=== PATIENT | female | born 1965 | race Caucasian/White ===

== ENCOUNTER 2017-08-23 03:10 | Emergency (ER) | payer OTHER, SELFPAY ==
[2017-08-23 03:30] VITALS: BP 146/84; PULSE 72; RESP 16; TEMP 36.7; O2SAT 100
--- NOTE | 2017-08-23 03:37 | DI.RAD.S_ITS ---
PROCEDURE: XR CHEST 2V INDICATIONS: 51 year-old female with palpitations. TECHNIQUE: 2 views of the chest were acquired. COMPARISON: None. FINDINGS: Surgical changes and devices: None. Lungs and pleura: No pleural effusions or pneumothorax. Lungs are clear. Lung volumes are prominent. Mediastinum: Mediastinal contours are normal. Heart size is normal. Bones and chest wall: No suspicious bony abnormalities. Soft tissues appear unremarkable. IMPRESSION: No acute cardiopulmonary disease. Prominent lung volumes raise the question of chronic obstructive pulmonary disease. Dictated by: Shade Rowe M.D. on 08/23/2017 at 7:50 Approved by: Shade Rowe M.D. on 08/23/2017 at 7:50
--- NOTE | 2017-08-23 03:37 | DI.RAD.S_ITS ---
PROCEDURE: XR TIBIA FUBULA RT 2V INDICATIONS: 51 year-old female with anterior right leg pain after fall. TECHNIQUE: 2 views of the tibia and fibula were acquired. COMPARISON: None. FINDINGS: Bones: No fractures or dislocations. No suspicious bony lesions. Soft tissues: No suspicious soft tissue calcifications or masses. IMPRESSION: No acute bony injuries of the right lower leg. Dictated by: Shade Rowe M.D. on 08/23/2017 at 7:49 Approved by: Shade Rowe M.D. on 08/23/2017 at 7:50
--- NOTE | 2017-08-23 03:39 | PC.NURSE ---
pt reports she was on the phone with her friend norberto she was crying and upset. norberto was concerned for her. pt's phone . 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 states her meds are inher car but she was afraid of the dark.
[2017-08-23 04:31] LABS: Add Manual Diff / Slide Review NO; Basophils Percent Auto 0.6 % (0-2); Eosinophils Percent Auto 1.5 % (2-4); Hematocrit 40.3 % (36-46); Hemoglobin 13.9 g/dL (12.0-16.0); Lymphocytes Percent Auto 21.2 % (25-40); Mean Corpuscular HGB Conc 34.6 % (30-36); Mean Corpuscular Hemoglobin 31.8 PG (26-34); Mean Corpuscular Volume 92.1 fL (80-100); Monocytes Percent Auto 7.2 % (3-14); Neutrophils Absolute Auto 4100 /uL (3000-5900); Neutrophils Percent Auto 69.5 % (50-75); Platelet Count 297 X10^3/uL (150-400); Red Blood Cell Count 4.37 X10^6/uL (4.0-5.2); Red Cell Distribution Width 13.2 % (11.6-14.8); White Blood Cell Count 5.9 X10^3/uL (4.5-11.0)
[2017-08-23 04:39] LABS: Alanine Aminotransferase 30 IU/L (9-52); Albumin 3.9 g/dL (3.5-5.0); Albumin Globulin Ratio 1.3 (1.0-2.8); Alkaline Phosphatase 99 U/L (38-126); Aspartate Aminotransferase 32 IU/L (14-36); Bilirubin Total 0.3 mg/dL (0.2-1.3); Blood Urea Nitrogen 7 mg/dL (7-17); Calcium 8.8 mg/dL (8.4-10.2); Carbon Dioxide 25 mmol/L (22-32); Chloride 109 mmol/L (98-107); Estimated Glomerular Filt Rate > 60.0 mL/min (>60); Ethanol (ETOH) < 10 mg/dL; Globulin 2.9 g/dL (1.7-4.1); Glucose 106 mg/dL (70-100); HEMOLYSIS 31 (0-50); Sodium 145 mmol/L (137-145); Total Protein 6.8 g/dL (6.3-8.2)
--- NOTE | 2017-08-23 04:53 | ED.PSYCH ---
HPI - Psych <Xiang Ross DO - Last Filed: 08/25/17 07:17> General Chief Complaint: Psychiatric Symptoms Stated Complaint: Not sleeping, right leg injury Time Seen by Provider: 08/23/17 03:19 Source: patient and police Mode of arrival: ambulatory Limitations: no limitations History of Present Illness HPI Narrative: Patient presents to the emergency department today with a chief complaint of inability to sleep for some time. She states that her right anterior romero hurts ever since a fall 3 weeks ago and this is keeping her. Additionally she states that she thinks she may be having a thyroid storm because she has been having a hard time sleeping. She denies any headache any nausea, vomiting, fever or chills. She denies any existing mental health diagnosis other than PTSD. complaint: other Onset (ago): day(s) Duration: constant Context: significant life stressor Associated psychiatric symptoms: delusions Associated symptoms: denies other symptoms Treatments prior to arrival: none Related Data Home Medications Medication Instructions Recorded Confirmed levothyroxine [Synthroid] 75 mcg PO DAILY 08/23/17 08/23/17 progesterone micronized 200 mcg PO DAILY 08/23/17 08/23/17 Allergies Allergy/AdvReac Type Severity Reaction Status Date / Time aspirin Allergy Verified 08/23/17 03:30 codeine Allergy Verified 08/23/17 03:30 diazepam [From Valium] Allergy Verified 08/23/17 03:30 ibuprofen [From Advil] Allergy Verified 08/23/17 03:30 morphine Allergy Verified 08/23/17 03:30 naproxen [From Aleve] Allergy Verified 08/23/17 03:30 Penicillins Allergy Verified 08/23/17 03:30 Review of Systems <Xiang Ross DO - Last Filed: 08/25/17 07:17> Review of Systems All systems reviewed & are unremarkable except as noted in HPI and below Constitutional Denies chills, Denies fever(s), Denies lethargy and Denies weakness Eyes Denies change in vision, Denies eye discharge, Denies irritation and Denies loss of vision ENT Ears, Nose, Mouth, and Throat: Denies change in voice, Denies neck pain and Denies sore throat Cardiovascular Denies chest pain, Denies irregular heart rhythm, Denies lightheadedness, Denies palpitations, Denies dyspnea, Denies dyspnea on exertion and Denies orthopnea Respiratory Denies cough, Denies dyspnea, Denies dyspnea on exertion and Denies wheezing Gastrointestinal Gastrointestinal: Denies abdominal pain, Denies change in bowel habits, Denies diarrhea, Denies nausea and Denies vomiting Genitourinary Denies hematuria, Denies flank pain, Denies urinary incontinence and Denies urinary urgency Musculoskeletal Reports limited range of motion and Denies neck pain Integumentary/Breasts Denies pruritus, Denies erythema, Denies rash and Denies wounds Neurologic Denies confusion, Denies loss of vision and Denies weakness Psychiatric Denies anxiety, Denies confusion, Denies depression, Denies homicidal ideation and Denies suicidal ideation Endocrine Denies palpitations Hematologic/Lymphatic Denies easy bruising Allergic/Immunologic Denies wheezing Exam <Xiang Ross, DO - Last Filed: 08/25/17 07:17> Narrative Exam Narrative: Pleasant 51F in no significant distress Initial Vital Signs Initial Vital Signs: Vital Signs Temperature 98.0 F 08/23/17 03:30 Pulse Rate 72 08/23/17 03:30 Respiratory Rate 16 08/23/17 03:30 Blood Pressure 146/84 H 08/23/17 03:30 Pulse Oximetry 100 08/23/17 03:30 Const General: cooperative, well developed and anxious Nutritional Appearance: well nourished Orientation: alert, awake, oriented x3 and not confused [facility] Head: normocephalic and atraumatic Ears: external ears normal and TM's normal bilaterally Nose: external nose normal and No nasal discharge Face and sinus: sinuses nontender, face symmetric, no sinus tenderness and No dry mucous membranes Mouth: oral mucosae normal and moist mucous membranes Teeth and gingiva: dentition normal Throat: tonsils normal and uvula midline Neck Neck: normal visual inspection, trachea midline, No lymphadenopathy, No midline deformity and No JVD Lymphatic: No lymphedema Chest Chest: normal inspection of the chest Cardio Rate: regular rate Rhythm: regular rhythm Heart Sounds: no click, no gallops, no murmurs and no rubs Pulses: normal peripheral pulses Back/Spine/Pelvis Back: No CVA tenderness Cervical Spine: cervical ROM normal and No pain with cervical ROM Thoracic/Lumbar Spine: thoracic and lumbar spine normal to inspection Skin General: no rashes or lesions noted, No jaundice and No petechiae Neuro General: alert, oriented x3, gait normal and no focal motor deficits Speech: speech normal Extrem Right lower extremity: lower leg (mild tenderness to palpation from fall 3 weeks again) Psych Appearance: grossly normal Speech and Movement: pressured speech Mood: anxious mood and manic mood Affect: normal affect Thought Process: flight of ideas Thought Content: compulsions and delusions Judgment: judgment good <Sammy Hubbard, DO - Last Filed: 08/23/17 12:52> Initial Vital Signs Initial Vital Signs: Vital Signs Temperature 98.0 F 08/23/17 03:30 Pulse Rate 72 08/23/17 03:30 Respiratory Rate 16 08/23/17 03:30 Blood Pressure 146/84 H 08/23/17 03:30 Pulse Oximetry 100 08/23/17 03:30 Course <Xiang Ross, DO - Last Filed: 08/25/17 07:17> Orders Ordered: ED Orders 08/23/17 04:20 Complete Blood Count AUTO DIFF Stat Comprehensive Metabolic Panel Stat Ethanol (ETOH) Stat Free T4 Free Thyroxine Stat Thyroid Stimulating Hormone Stat 08/23/17 06:55 Urinalysis and Microscopic Stat Urine Culture Stat Reevaluation(s) Reevaluation #1: patient resting comfortably. Eating a filet of salmon which she brought from home. Time: 05:09 Reevaluation #2: Over the course of the visit becomes increasingly clear that the patient is impressively manic and is not taking medications that she surely has been prescribed. She demonstrates no homicidal or suicidal ideation but is incredibly tangential in thought with pressured speech and flight of ideas. She is very paranoid that she has been improperly treated and labeled as a mental health patient when in fact her symptoms are due to some as of yet unknown diagnosis. She states she does not have bipolar disorder and I have no with 0 ready to suggest such. She states that she has not taken medications because she does not need them. It is now been brought to my attention that she arrived at the emergency department because of making her very paranoid and nonsensical comments to a friend or roommate was then notified police to check on her. Police brought her to our registration and she checked in. She denies wanting or needing help for any mental health and states she just wanted to have her romero pain evaluated. S spoken with her father, at [employer], on the phone whom states she does in fact carries a diagnosis of bipolar and has had multiple hospitalizations including recently at [facility] for depression. He states that she has been escalating over the past few days on the manic side of things and she is no longer able to care for herself at home due to the severity of her illness. He is more than happy to engage in phone contact with the DCR or fill out an affit eloise. [facility] has been contacted and DCR will be dispatched. My intent is that this patient be admitted for stabilization of her condition. Sign out to Dr. Hubbard. Vital Signs - 8 hr 08/23/17 07:04 08/23/17 12:49 Temperature 98.3 F Pulse Rate 86 79 Respiratory Rate 16 19 Blood Pressure [Left Arm] 161/94 H 153/92 H Pulse Oximetry 99 100 <Sammy Hubbard, DO - Last Filed: 08/23/17 12:52> Orders Ordered: ED Orders 08/23/17 04:20 Complete Blood Count AUTO DIFF Stat Comprehensive Metabolic Panel Stat Ethanol (ETOH) Stat Free T4 Free Thyroxine Stat Thyroid Stimulating Hormone Stat 08/23/17 06:55 Urinalysis and Microscopic Stat Urine Culture Stat Reevaluation(s) Reevaluation #3: I assumed care of this patient from Dr. Ross at the change of shift. I confirmed the elements of the history and physical exam as documented above. I spoke with the DCR who SIERRA'd patient and found an accepting bed and physician at [facility]. Dr. Willoughby will see the patient. Ambulance is coming to transport patient BLS Time: 12:50 Vital Signs - 8 hr 08/23/17 07:04 08/23/17 12:49 Temperature 98.3 F Pulse Rate 86 79 Respiratory Rate 16 19 Blood Pressure [Left Arm] 161/94 H 153/92 H Pulse Oximetry 99 100 MDM - Psych <Xiang Ross, DO - Last Filed: 08/25/17 07:17> Differential Diagnosis Likely acute psychosis, chronic schizophrenia, bipolar disorder, drug-induced psychotic disorder and acute anxiety Medical Records Attestation: I reviewed the patient's medical records. Lab Data Attestation: I reviewed the patient's lab results. Result diagrams: 08/23/17 04:20 08/23/17 04:20 Lab Results 06/06/18 06/06/18 06/06/18 Range/Units 04:20 04:20 04:20 WBC 5.9 (4.5-11.0) X10^3/uL RBC 4.37 (4.0-5.2) X10^6/uL Hgb 13.9 (12.0-16.0) g/dL Hct 40.3 (36-46) % MCV 92.1 (80-100) fL MCH 31.8 (26-34) PG MCHC 34.6 (30-36) % RDW 13.2 (11.6-14.8) % Plt Count 297 (150-400) X10^3/uL Neut % (Auto) 69.5 (50-75) % Lymph % (Auto) 21.2 L (25-40) % [place] % (Auto) 7.2 (3-14) % Eos % (Auto) 1.5 L (2-4) % Baso % (Auto) 0.6 (0-2) % Neut # (Auto) 4100 (6509-8026) /uL Sodium 145 (137-145) mmol/L Potassium 4.0 (3.4-5.1) mmol/L Chloride 109 H (98-107) mmol/L Carbon Dioxide 25 (22-32) mmol/L BUN 7 (7-17) mg/dL Creatinine 0.50 L (0.52-1.04) mg/dL Estimated GFR > 60.0 (>60) mL/min BUN/Creatinine Ratio 14.0 (6-22) Glucose 106 H (70-100) mg/dL Calcium 8.8 (8.4-10.2) mg/dL Total Bilirubin 0.3 (0.2-1.3) mg/dL AST 32 (14-36) IU/L ALT 30 (9-52) IU/L Alkaline Phosphatase 99 (38-126) U/L Total Protein 6.8 (6.3-8.2) g/dL Albumin 3.9 (3.5-5.0) g/dL Globulin 2.9 (1.7-4.1) g/dL Albumin/Globulin Ratio 1.3 (1.0-2.8) TSH 11.40 H (0.47-4.68) uIU/mL Free T4 0.93 (0.78-2.19) ng/dL Urine Color Urine Appearance Urine pH (4.5-8.0) Ur Specific [place] (1.000-1.035) Urine Protein (Negative) Urine Glucose (UA) (Normal) g/dL Urine Ketones (NEGATIVE) Urine Occult Blood (Negative) Urine Nitrate (Negative) Urine Bilirubin (NEGATIVE) Urine Urobilinogen (0.2) E.U./dL Ur Leukocyte Esterase (NEGATIVE) Urine RBC (0-5/HPF) Urine WBC (0-5/HPF) Ur Squamous Epith Cells Urine Bacteria (None) Ur Culture Indicated? Micro UA Comment Ethyl Alcohol < 10 mg/dL 08/23/17 Range/Units 06:55 WBC (4.5-11.0) X10^3/uL RBC (4.0-5.2) X10^6/uL Hgb (12.0-16.0) g/dL Hct (36-46) % MCV (80-100) fL MCH (26-34) PG MCHC (30-36) % RDW (11.6-14.8) % Plt Count (150-400) X10^3/uL Neut % (Auto) (50-75) % Lymph % (Auto) (25-40) % [place] % (Auto) (3-14) % Eos % (Auto) (2-4) % Baso % (Auto) (0-2) % Neut # (Auto) (4382-4879) /uL Sodium (137-145) mmol/L Potassium (3.4-5.1) mmol/L Chloride (98-107) mmol/L Carbon Dioxide (22-32) mmol/L BUN (7-17) mg/dL Creatinine (0.52-1.04) mg/dL Estimated GFR (>60) mL/min BUN/Creatinine Ratio (6-22) Glucose (70-100) mg/dL Calcium (8.4-10.2) mg/dL Total Bilirubin (0.2-1.3) mg/dL AST (14-36) IU/L ALT (9-52) IU/L Alkaline Phosphatase (38-126) U/L Total Protein (6.3-8.2) g/dL Albumin (3.5-5.0) g/dL Globulin (1.7-4.1) g/dL Albumin/Globulin Ratio (1.0-2.8) TSH (0.47-4.68) uIU/mL Free T4 (0.78-2.19) ng/dL Urine Color Yellow Urine Appearance Clear Urine pH 7.5 (4.5-8.0) Ur Specific [place] 1.020 (1.000-1.035) Urine Protein Negative (Negative) Urine Glucose (UA) Negative (Normal) g/dL Urine Ketones Negative (NEGATIVE) Urine Occult Blood Negative (Negative) Urine Nitrate Negative (Negative) Urine Bilirubin Negative (NEGATIVE) Urine Urobilinogen 0.2 (0.2) E.U./dL Ur Leukocyte Esterase 1+ H (NEGATIVE) Urine RBC None seen (0-5/HPF) Urine WBC 1-5/hpf (0-5/HPF) Ur Squamous Epith Cells 0-1 /hpf Urine Bacteria Few (2-10) H (None) Ur Culture Indicated? Specimen cultured Micro UA Comment Not Reportable Ethyl Alcohol mg/dL <Sammy Hubbard, DO - Last Filed: 08/23/17 12:52> Lab Data Lab Results 08/23/17 08/23/17 08/23/17 Range/Units 04:20 04:20 04:20 WBC 5.9 (4.5-11.0) X10^3/uL RBC 4.37 (4.0-5.2) X10^6/uL Hgb 13.9 (12.0-16.0) g/dL Hct 40.3 (36-46) % MCV 92.1 (80-100) fL MCH 31.8 (26-34) PG MCHC 34.6 (30-36) % RDW 13.2 (11.6-14.8) % Plt Count 297 (150-400) X10^3/uL Neut % (Auto) 69.5 (50-75) % Lymph % (Auto) 21.2 L (25-40) % [place] % (Auto) 7.2 (3-14) % Eos % (Auto) 1.5 L (2-4) % Baso % (Auto) 0.6 (0-2) % Neut # (Auto) 4100 (6350-8570) /uL Sodium 145 (137-145) mmol/L Potassium 4.0 (3.4-5.1) mmol/L Chloride 109 H (98-107) mmol/L Carbon Dioxide 25 (22-32) mmol/L BUN 7 (7-17) mg/dL Creatinine 0.50 L (0.52-1.04) mg/dL Estimated GFR > 60.0 (>60) mL/min BUN/Creatinine Ratio 14.0 (6-22) Glucose 106 H (70-100) mg/dL Calcium 8.8 (8.4-10.2) mg/dL Total Bilirubin 0.3 (0.2-1.3) mg/dL AST 32 (14-36) IU/L ALT 30 (9-52) IU/L Alkaline Phosphatase 99 (38-126) U/L Total Protein 6.8 (6.3-8.2) g/dL Albumin 3.9 (3.5-5.0) g/dL Globulin 2.9 (1.7-4.1) g/dL Albumin/Globulin Ratio 1.3 (1.0-2.8) TSH 11.40 H (0.47-4.68) uIU/mL Free T4 0.93 (0.78-2.19) ng/dL Urine Color Urine Appearance Urine pH (4.5-8.0) Ur Specific [place] (1.000-1.035) Urine Protein (Negative) Urine Glucose (UA) (Normal) g/dL Urine Ketones (NEGATIVE) Urine Occult Blood (Negative) Urine Nitrate (Negative) Urine Bilirubin (NEGATIVE) Urine Urobilinogen (0.2) E.U./dL Ur Leukocyte Esterase (NEGATIVE) Urine RBC (0-5/HPF) Urine WBC (0-5/HPF) Ur Squamous Epith Cells Urine Bacteria (None) Ur Culture Indicated? Micro UA Comment Ethyl Alcohol < 10 mg/dL 08/23/17 Range/Units 06:55 WBC (4.5-11.0) X10^3/uL RBC (4.0-5.2) X10^6/uL Hgb (12.0-16.0) g/dL Hct (36-46) % MCV (80-100) fL MCH (26-34) PG MCHC (30-36) % RDW (11.6-14.8) % Plt Count (150-400) X10^3/uL Neut % (Auto) (50-75) % Lymph % (Auto) (25-40) % [place] % (Auto) (3-14) % Eos % (Auto) (2-4) % Baso % (Auto) (0-2) % Neut # (Auto) (4386-7957) /uL Sodium (137-145) mmol/L Potassium (3.4-5.1) mmol/L Chloride (98-107) mmol/L Carbon Dioxide (22-32) mmol/L BUN (7-17) mg/dL Creatinine (0.52-1.04) mg/dL Estimated GFR (>60) mL/min BUN/Creatinine Ratio (6-22) Glucose (70-100) mg/dL Calcium (8.4-10.2) mg/dL Total Bilirubin (0.2-1.3) mg/dL AST (14-36) IU/L ALT (9-52) IU/L Alkaline Phosphatase (38-126) U/L Total Protein (6.3-8.2) g/dL Albumin (3.5-5.0) g/dL Globulin (1.7-4.1) g/dL Albumin/Globulin Ratio (1.0-2.8) TSH (0.47-4.68) uIU/mL Free T4 (0.78-2.19) ng/dL Urine Color Yellow Urine Appearance Clear Urine pH 7.5 (4.5-8.0) Ur Specific [place] 1.020 (1.000-1.035) Urine Protein Negative (Negative) Urine Glucose (UA) Negative (Normal) g/dL Urine Ketones Negative (NEGATIVE) Urine Occult Blood Negative (Negative) Urine Nitrate Negative (Negative) Urine Bilirubin Negative (NEGATIVE) Urine Urobilinogen 0.2 (0.2) E.U./dL Ur Leukocyte Esterase 1+ H (NEGATIVE) Urine RBC None seen (0-5/HPF) Urine WBC 1-5/hpf (0-5/HPF) Ur Squamous Epith Cells 0-1 /hpf Urine Bacteria Few (2-10) H (None) Ur Culture Indicated? Specimen cultured Micro UA Comment Not Reportable Ethyl Alcohol mg/dL Discharge Plan Departure Patient Disposition: Xfer Psychiatric Hosp Clinical Impression: Contusion of left leg, Insomnia, Acute psychosis Discharge Date/Time: 08/23/17 14:00 Interventions: ED Discharge Assessment Last Done: 08/23/17 13:05 Instructions: DI for Contusion Referrals: [facility] [Outside] Shaun Chandler MD [Non-Staff] -
--- NOTE | 2017-08-23 04:56 | ED_ITS ---
HPI - Psych <Xiang Ross DO - Last Filed: 08/25/17 07:17> General Chief Complaint: Psychiatric Symptoms Stated Complaint: Not sleeping, right leg injury Time Seen by Provider: 08/23/17 03:19 Source: patient and police Mode of arrival: ambulatory Limitations: no limitations History of Present Illness HPI Narrative: Patient presents to the emergency department today with a chief complaint of inability to sleep for some time. She states that her right anterior romero hurts ever since a fall 3 weeks ago and this is keeping her. Additionally she states that she thinks she may be having a thyroid storm because she has been having a hard time sleeping. She denies any headache any nausea, vomiting, fever or chills. She denies any existing mental health diagnosis other than PTSD. complaint: other Onset (ago): day(s) Duration: constant Context: significant life stressor Associated psychiatric symptoms: delusions Associated symptoms: denies other symptoms Treatments prior to arrival: none Related Data Home Medications Medication Instructions Recorded Confirmed levothyroxine [Synthroid] 75 mcg PO DAILY 08/23/17 08/23/17 progesterone micronized 200 mcg PO DAILY 08/23/17 08/23/17 Allergies Allergy/AdvReac Type Severity Reaction Status Date / Time aspirin Allergy Verified 08/23/17 03:30 codeine Allergy Verified 08/23/17 03:30 diazepam [From Valium] Allergy Verified 08/23/17 03:30 ibuprofen [From Advil] Allergy Verified 08/23/17 03:30 morphine Allergy Verified 08/23/17 03:30 naproxen [From Aleve] Allergy Verified 08/23/17 03:30 Penicillins Allergy Verified 08/23/17 03:30 Review of Systems <Xinag Ross DO - Last Filed: 08/25/17 07:17> Review of Systems All systems reviewed & are unremarkable except as noted in HPI and below Constitutional Denies chills, Denies fever(s), Denies lethargy and Denies weakness Eyes Denies change in vision, Denies eye discharge, Denies irritation and Denies loss of vision ENT Ears, Nose, Mouth, and Throat: Denies change in voice, Denies neck pain and Denies sore throat Cardiovascular Denies chest pain, Denies irregular heart rhythm, Denies lightheadedness, Denies palpitations, Denies dyspnea, Denies dyspnea on exertion and Denies orthopnea Respiratory Denies cough, Denies dyspnea, Denies dyspnea on exertion and Denies wheezing Gastrointestinal Gastrointestinal: Denies abdominal pain, Denies change in bowel habits, Denies diarrhea, Denies nausea and Denies vomiting Genitourinary Denies hematuria, Denies flank pain, Denies urinary incontinence and Denies urinary urgency Musculoskeletal Reports limited range of motion and Denies neck pain Integumentary/Breasts Denies pruritus, Denies erythema, Denies rash and Denies wounds Neurologic Denies confusion, Denies loss of vision and Denies weakness Psychiatric Denies anxiety, Denies confusion, Denies depression, Denies homicidal ideation and Denies suicidal ideation Endocrine Denies palpitations Hematologic/Lymphatic Denies easy bruising Allergic/Immunologic Denies wheezing Exam <Xiang Ross, DO - Last Filed: 08/25/17 07:17> Narrative Exam Narrative: Pleasant 51F in no significant distress Initial Vital Signs Initial Vital Signs: Vital Signs Temperature 98.0 F 08/23/17 03:30 Pulse Rate 72 08/23/17 03:30 Respiratory Rate 16 08/23/17 03:30 Blood Pressure 146/84 H 08/23/17 03:30 Pulse Oximetry 100 08/23/17 03:30 Const General: cooperative, well developed and anxious Nutritional Appearance: well nourished Orientation: alert, awake, oriented x3 and not confused [facility] Head: normocephalic and atraumatic Ears: external ears normal and TM's normal bilaterally Nose: external nose normal and No nasal discharge Face and sinus: sinuses nontender, face symmetric, no sinus tenderness and No dry mucous membranes Mouth: oral mucosae normal and moist mucous membranes Teeth and gingiva: dentition normal Throat: tonsils normal and uvula midline Neck Neck: normal visual inspection, trachea midline, No lymphadenopathy, No midline deformity and No JVD Lymphatic: No lymphedema Chest Chest: normal inspection of the chest Cardio Rate: regular rate Rhythm: regular rhythm Heart Sounds: no click, no gallops, no murmurs and no rubs Pulses: normal peripheral pulses Back/Spine/Pelvis Back: No CVA tenderness Cervical Spine: cervical ROM normal and No pain with cervical ROM Thoracic/Lumbar Spine: thoracic and lumbar spine normal to inspection Skin General: no rashes or lesions noted, No jaundice and No petechiae Neuro General: alert, oriented x3, gait normal and no focal motor deficits Speech: speech normal Extrem Right lower extremity: lower leg (mild tenderness to palpation from fall 3 weeks again) Psych Appearance: grossly normal Speech and Movement: pressured speech Mood: anxious mood and manic mood Affect: normal affect Thought Process: flight of ideas Thought Content: compulsions and delusions Judgment: judgment good <Sammy Hubbard, DO - Last Filed: 08/23/17 12:52> Initial Vital Signs Initial Vital Signs: Vital Signs Temperature 98.0 F 08/23/17 03:30 Pulse Rate 72 08/23/17 03:30 Respiratory Rate 16 08/23/17 03:30 Blood Pressure 146/84 H 08/23/17 03:30 Pulse Oximetry 100 08/23/17 03:30 Course <Xiang Ross, DO - Last Filed: 08/25/17 07:17> Orders Ordered: ED Orders 08/23/17 04:20 Complete Blood Count AUTO DIFF Stat Comprehensive Metabolic Panel Stat Ethanol (ETOH) Stat Free T4 Free Thyroxine Stat Thyroid Stimulating Hormone Stat 08/23/17 06:55 Urinalysis and Microscopic Stat Urine Culture Stat Reevaluation(s) Reevaluation #1: patient resting comfortably. Eating a filet of salmon which she brought from home. Time: 05:09 Reevaluation #2: Over the course of the visit becomes increasingly clear that the patient is impressively manic and is not taking medications that she surely has been prescribed. She demonstrates no homicidal or suicidal ideation but is incredibly tangential in thought with pressured speech and flight of ideas. She is very paranoid that she has been improperly treated and labeled as a mental health patient when in fact her symptoms are due to some as of yet unknown diagnosis. She states she does not have bipolar disorder and I have no with 0 ready to suggest such. She states that she has not taken medications because she does not need them. It is now been brought to my attention that she arrived at the emergency department because of making her very paranoid and nonsensical comments to a friend or roommate was then notified police to check on her. Police brought her to our registration and she checked in. She denies wanting or needing help for any mental health and states she just wanted to have her romero pain evaluated. S spoken with her father, at [employer], on the phone whom states she does in fact carries a diagnosis of bipolar and has had multiple hospitalizations including recently at [facility] for depression. He states that she has been escalating over the past few days on the manic side of things and she is no longer able to care for herself at home due to the severity of her illness. He is more than happy to engage in phone contact with the [facility] or fill out an affit eloise. [facility] has been contacted and [facility] will be dispatched. My intent is that this patient be admitted for stabilization of her condition. Sign out to Dr. Hubbard. Vital Signs - 8 hr 08/23/17 07:04 08/23/17 12:49 Temperature 98.3 F Pulse Rate 86 79 Respiratory Rate 16 19 Blood Pressure [Left Arm] 161/94 H 153/92 H Pulse Oximetry 99 100 <Sammy Hubbard, DO - Last Filed: 08/23/17 12:52> Orders Ordered: ED Orders 08/23/17 04:20 Complete Blood Count AUTO DIFF Stat Comprehensive Metabolic Panel Stat Ethanol (ETOH) Stat Free T4 Free Thyroxine Stat Thyroid Stimulating Hormone Stat 08/23/17 06:55 Urinalysis and Microscopic Stat Urine Culture Stat Reevaluation(s) Reevaluation #3: I assumed care of this patient from Dr. Ross at the change of shift. I confirmed the elements of the history and physical exam as documented above. I spoke with the DCR who SIERRA'd patient and found an accepting bed and physician at [facility]. Dr. Willoughby will see the patient. Ambulance is coming to transport patient BLS Time: 12:50 Vital Signs - 8 hr 08/23/17 07:04 08/23/17 12:49 Temperature 98.3 F Pulse Rate 86 79 Respiratory Rate 16 19 Blood Pressure [Left Arm] 161/94 H 153/92 H Pulse Oximetry 99 100 MDM - Psych <Xiang Ross, DO - Last Filed: 08/25/17 07:17> Differential Diagnosis Likely acute psychosis, chronic schizophrenia, bipolar disorder, drug-induced psychotic disorder and acute anxiety Medical Records Attestation: I reviewed the patient's medical records. Lab Data Attestation: I reviewed the patient's lab results. Result diagrams: 08/23/17 04:20 08/23/17 04:20 Lab Results 06/06/18 06/06/18 06/06/18 Range/Units 04:20 04:20 04:20 WBC 5.9 (4.5-11.0) X10^3/uL RBC 4.37 (4.0-5.2) X10^6/uL Hgb 13.9 (12.0-16.0) g/dL Hct 40.3 (36-46) % MCV 92.1 (80-100) fL MCH 31.8 (26-34) PG MCHC 34.6 (30-36) % RDW 13.2 (11.6-14.8) % Plt Count 297 (150-400) X10^3/uL Neut % (Auto) 69.5 (50-75) % Lymph % (Auto) 21.2 L (25-40) % [place] % (Auto) 7.2 (3-14) % Eos % (Auto) 1.5 L (2-4) % Baso % (Auto) 0.6 (0-2) % Neut # (Auto) 4100 (8873-1307) /uL Sodium 145 (137-145) mmol/L Potassium 4.0 (3.4-5.1) mmol/L Chloride 109 H (98-107) mmol/L Carbon Dioxide 25 (22-32) mmol/L BUN 7 (7-17) mg/dL Creatinine 0.50 L (0.52-1.04) mg/dL Estimated GFR > 60.0 (>60) mL/min BUN/Creatinine Ratio 14.0 (6-22) Glucose 106 H (70-100) mg/dL Calcium 8.8 (8.4-10.2) mg/dL Total Bilirubin 0.3 (0.2-1.3) mg/dL AST 32 (14-36) IU/L ALT 30 (9-52) IU/L Alkaline Phosphatase 99 (38-126) U/L Total Protein 6.8 (6.3-8.2) g/dL Albumin 3.9 (3.5-5.0) g/dL Globulin 2.9 (1.7-4.1) g/dL Albumin/Globulin Ratio 1.3 (1.0-2.8) TSH 11.40 H (0.47-4.68) uIU/mL Free T4 0.93 (0.78-2.19) ng/dL Urine Color Urine Appearance Urine pH (4.5-8.0) Ur Specific [place] (1.000-1.035) Urine Protein (Negative) Urine Glucose (UA) (Normal) g/dL Urine Ketones (NEGATIVE) Urine Occult Blood (Negative) Urine Nitrate (Negative) Urine Bilirubin (NEGATIVE) Urine Urobilinogen (0.2) E.U./dL Ur Leukocyte Esterase (NEGATIVE) Urine RBC (0-5/HPF) Urine WBC (0-5/HPF) Ur Squamous Epith Cells Urine Bacteria (None) Ur Culture Indicated? Micro UA Comment Ethyl Alcohol < 10 mg/dL 08/23/17 Range/Units 06:55 WBC (4.5-11.0) X10^3/uL RBC (4.0-5.2) X10^6/uL Hgb (12.0-16.0) g/dL Hct (36-46) % MCV (80-100) fL MCH (26-34) PG MCHC (30-36) % RDW (11.6-14.8) % Plt Count (150-400) X10^3/uL Neut % (Auto) (50-75) % Lymph % (Auto) (25-40) % [place] % (Auto) (3-14) % Eos % (Auto) (2-4) % Baso % (Auto) (0-2) % Neut # (Auto) (6558-8084) /uL Sodium (137-145) mmol/L Potassium (3.4-5.1) mmol/L Chloride (98-107) mmol/L Carbon Dioxide (22-32) mmol/L BUN (7-17) mg/dL Creatinine (0.52-1.04) mg/dL Estimated GFR (>60) mL/min BUN/Creatinine Ratio (6-22) Glucose (70-100) mg/dL Calcium (8.4-10.2) mg/dL Total Bilirubin (0.2-1.3) mg/dL AST (14-36) IU/L ALT (9-52) IU/L Alkaline Phosphatase (38-126) U/L Total Protein (6.3-8.2) g/dL Albumin (3.5-5.0) g/dL Globulin (1.7-4.1) g/dL Albumin/Globulin Ratio (1.0-2.8) TSH (0.47-4.68) uIU/mL Free T4 (0.78-2.19) ng/dL Urine Color Yellow Urine Appearance Clear Urine pH 7.5 (4.5-8.0) Ur Specific [place] 1.020 (1.000-1.035) Urine Protein Negative (Negative) Urine Glucose (UA) Negative (Normal) g/dL Urine Ketones Negative (NEGATIVE) Urine Occult Blood Negative (Negative) Urine Nitrate Negative (Negative) Urine Bilirubin Negative (NEGATIVE) Urine Urobilinogen 0.2 (0.2) E.U./dL Ur Leukocyte Esterase 1+ H (NEGATIVE) Urine RBC None seen (0-5/HPF) Urine WBC 1-5/hpf (0-5/HPF) Ur Squamous Epith Cells 0-1 /hpf Urine Bacteria Few (2-10) H (None) Ur Culture Indicated? Specimen cultured Micro UA Comment Not Reportable Ethyl Alcohol mg/dL <Sammy Hubbard, DO - Last Filed: 08/23/17 12:52> Lab Data Lab Results 08/23/17 08/23/17 08/23/17 Range/Units 04:20 04:20 04:20 WBC 5.9 (4.5-11.0) X10^3/uL RBC 4.37 (4.0-5.2) X10^6/uL Hgb 13.9 (12.0-16.0) g/dL Hct 40.3 (36-46) % MCV 92.1 (80-100) fL MCH 31.8 (26-34) PG MCHC 34.6 (30-36) % RDW 13.2 (11.6-14.8) % Plt Count 297 (150-400) X10^3/uL Neut % (Auto) 69.5 (50-75) % Lymph % (Auto) 21.2 L (25-40) % [place] % (Auto) 7.2 (3-14) % Eos % (Auto) 1.5 L (2-4) % Baso % (Auto) 0.6 (0-2) % Neut # (Auto) 4100 (1008-4096) /uL Sodium 145 (137-145) mmol/L Potassium 4.0 (3.4-5.1) mmol/L Chloride 109 H (98-107) mmol/L Carbon Dioxide 25 (22-32) mmol/L BUN 7 (7-17) mg/dL Creatinine 0.50 L (0.52-1.04) mg/dL Estimated GFR > 60.0 (>60) mL/min BUN/Creatinine Ratio 14.0 (6-22) Glucose 106 H (70-100) mg/dL Calcium 8.8 (8.4-10.2) mg/dL Total Bilirubin 0.3 (0.2-1.3) mg/dL AST 32 (14-36) IU/L ALT 30 (9-52) IU/L Alkaline Phosphatase 99 (38-126) U/L Total Protein 6.8 (6.3-8.2) g/dL Albumin 3.9 (3.5-5.0) g/dL Globulin 2.9 (1.7-4.1) g/dL Albumin/Globulin Ratio 1.3 (1.0-2.8) TSH 11.40 H (0.47-4.68) uIU/mL Free T4 0.93 (0.78-2.19) ng/dL Urine Color Urine Appearance Urine pH (4.5-8.0) Ur Specific [place] (1.000-1.035) Urine Protein (Negative) Urine Glucose (UA) (Normal) g/dL Urine Ketones (NEGATIVE) Urine Occult Blood (Negative) Urine Nitrate (Negative) Urine Bilirubin (NEGATIVE) Urine Urobilinogen (0.2) E.U./dL Ur Leukocyte Esterase (NEGATIVE) Urine RBC (0-5/HPF) Urine WBC (0-5/HPF) Ur Squamous Epith Cells Urine Bacteria (None) Ur Culture Indicated? Micro UA Comment Ethyl Alcohol < 10 mg/dL 08/23/17 Range/Units 06:55 WBC (4.5-11.0) X10^3/uL RBC (4.0-5.2) X10^6/uL Hgb (12.0-16.0) g/dL Hct (36-46) % MCV (80-100) fL MCH (26-34) PG MCHC (30-36) % RDW (11.6-14.8) % Plt Count (150-400) X10^3/uL Neut % (Auto) (50-75) % Lymph % (Auto) (25-40) % [place] % (Auto) (3-14) % Eos % (Auto) (2-4) % Baso % (Auto) (0-2) % Neut # (Auto) (0311-7811) /uL Sodium (137-145) mmol/L Potassium (3.4-5.1) mmol/L Chloride (98-107) mmol/L Carbon Dioxide (22-32) mmol/L BUN (7-17) mg/dL Creatinine (0.52-1.04) mg/dL Estimated GFR (>60) mL/min BUN/Creatinine Ratio (6-22) Glucose (70-100) mg/dL Calcium (8.4-10.2) mg/dL Total Bilirubin (0.2-1.3) mg/dL AST (14-36) IU/L ALT (9-52) IU/L Alkaline Phosphatase (38-126) U/L Total Protein (6.3-8.2) g/dL Albumin (3.5-5.0) g/dL Globulin (1.7-4.1) g/dL Albumin/Globulin Ratio (1.0-2.8) TSH (0.47-4.68) uIU/mL Free T4 (0.78-2.19) ng/dL Urine Color Yellow Urine Appearance Clear Urine pH 7.5 (4.5-8.0) Ur Specific [place] 1.020 (1.000-1.035) Urine Protein Negative (Negative) Urine Glucose (UA) Negative (Normal) g/dL Urine Ketones Negative (NEGATIVE) Urine Occult Blood Negative (Negative) Urine Nitrate Negative (Negative) Urine Bilirubin Negative (NEGATIVE) Urine Urobilinogen 0.2 (0.2) E.U./dL Ur Leukocyte Esterase 1+ H (NEGATIVE) Urine RBC None seen (0-5/HPF) Urine WBC 1-5/hpf (0-5/HPF) Ur Squamous Epith Cells 0-1 /hpf Urine Bacteria Few (2-10) H (None) Ur Culture Indicated? Specimen cultured Micro UA Comment Not Reportable Ethyl Alcohol mg/dL Discharge Plan Departure Patient Disposition: Xfer Psychiatric Hosp Clinical Impression: Contusion of left leg, Insomnia, Acute psychosis Discharge Date/Time: 08/23/17 14:00 Interventions: ED Discharge Assessment Last Done: 08/23/17 13:05 Instructions: DI for Contusion Referrals: [facility] [Outside] Shaun Chandler MD [Non-Staff] -
[2017-08-23 05:02] LABS: Free T4, Direct Thyroxine 0.93 ng/dL (0.78-2.19)
--- NOTE | 2017-08-23 05:43 | PC.NURSE ---
pt continually telling stories of previous hospitial visits. 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 pt appears to be getting angry, states i did not give you permission to draw my blood explained to patient dr ellis and myself explained what tests and procedures will need to be done and pt signed a consent. pt then states the docotor just came in and said im not having thyroid storms and he said im a liar.
--- NOTE | 2017-08-23 05:48 | PC.NURSE ---
pt continually eating on large peice of salmon she brought with her to the ed. pt also intermittently taking out notes and cards she is working on writing letters for her work and other people.
--- NOTE | 2017-08-23 06:06 | PC.NURSE ---
pt continually seeking to tell stories. pt seeking nurse to guess answers to multiple questions, also repetativly asking to repeat what she said.
--- NOTE | 2017-08-23 06:47 | PC.NURSE ---
pt discharged, father and mother met pt in waiting room. dr ellis spoke with pt and family. father requesting psych eval. pt unable to stop telling stories. pt not able to follow conversation. pt pleading for parents to stay. states mom can you text prosper and tell her im telling you the truth pt states tell prosper, cant i just tell you one sentence. pt repeatitivly trying to talk, not following directions. pt grabbing at her mother who is trying to exit the department.
[2017-08-23 07:04] VITALS: BP 161/94; PULSE 86; RESP 16; TEMP 36.8; O2SAT 99
[2017-08-23 07:09] LABS: RBC Urine None Seen (0-5/HPF)
[2017-08-23 07:11] LABS: Appearance Urine UA CLEAR; Bilirubin Urine UA NEGATIVE (NEGATIVE); Color Urine UA YELLOW; Glucose Urine UA NEGATIVE (Normal); Ketones Urine UA NEGATIVE (NEGATIVE); Leukocyte Esterase Urine UA 1+ (NEGATIVE); Nitrite Urine UA Negative (Negative); Occult Blood Urine UA NEGATIVE (Negative); Protein Urine UA NEGATIVE (Negative); Urobilinogen Urine UA 0.2 E.U./dL (0.2); pH Urine UA 7.5 (4.5-8.0)
--- NOTE | 2017-08-23 07:17 | PC.NURSE ---
Pt states she has not been caring for herself properly. States she has not been bathing as she should, only takes sponge baths 'as if you were camping'.
[2017-08-23 07:25] LABS: Bacteria Urine Few (2-10); Culture Indicated Urine Specimen Cultured; Squamous Epithelial Cell Urine 0-1 /HPF; WBC Urine 1-5/HPF (0-5/HPF)
--- NOTE | 2017-08-23 07:38 | PC.NURSE ---
recieved a call from alex barber, states, needs father statement for pt to be evaluated. there is not enough proof, pt is danger to herself.
--- NOTE | 2017-08-23 07:42 | PC.NURSE ---
called father tim myers, spoke and requested to write statement regarding concern for kallie.
--- NOTE | 2017-08-23 08:06 | PC.NURSE ---
recieved a call from [facility] , is familiar with pt, to fax her lab result to ch[facility].
--- NOTE | 2017-08-23 08:57 | PC.NURSE ---
recieved statement from father, contacted alex and she is aware.
--- NOTE | 2017-08-23 08:57 | PC.NURSE ---
alex from [facility] on the way to evaluate pt.
--- NOTE | 2017-08-23 10:21 | PC.NURSE ---
pt awake, repeatedly seeking attention to talk too. requested blanket, requested ice water, provided.
--- NOTE | 2017-08-23 10:52 | PC.NURSE ---
pt reports she is with pain clinic for hip pain, taking percocet and ativan, [facility], but ran out of ativan 5 weeks ago.
--- NOTE | 2017-08-23 11:30 | PC.NURSE ---
plan of care, pt transferred to [facility] per alex will be accepted after 1300.
[2017-08-23 12:49] VITALS: BP 153/92; PULSE 79; RESP 19; O2SAT 100
--- NOTE | 2017-08-23 12:52 | PC.NURSE ---
calling report at alex perez will be calling back. [phone]
--- NOTE | 2017-08-23 13:06 | PC.NURSE ---
pt transfer to [facility] , room 220 per alex. alex requested to offer pt anxiolytic to pt.
--- NOTE | 2017-08-23 13:15 | PC.NURSE ---
pt offered anxiolytic, pt refused states, she is allergic or cannot take, the only thing she can take is a low dose lithium, dr davis aware . no new order at this time. ativan,cogentin,lorazepam,valporic acid,resperidal,cymbalta,benadryl,xanax,haldol,geodon,zyprexa. (pt listed the above meds)
--- NOTE | 2017-08-23 13:56 | PC.NURSE ---
report given to [facility].
== END 2017-08-23 14:00 ==
PROVIDERS: Emergency Medicine; Emergency Provider Emergency Medicine
DX: G47.00 Insomnia, unspecified (principal); F23 Brief psychotic disorder; S80.12XA Contusion of left lower leg, initial encounter; W19.XXXA Unspecified fall, initial encounter
CPT/HCPCS: 36591; 71046; 73590; 80053; 80320; 81001; 84439; 84443; 85025; 87086; 93005; 99285

== ENCOUNTER 2017-09-01 18:23 | Emergency (ER) | payer OTHER, SELFPAY ==
[2017-09-01 18:35] VITALS: BP 180/94; PULSE 95; RESP 18; TEMP 36.9; O2SAT 100
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
[2017-09-01 21:16] VITALS: BP 163/100; PULSE 93; RESP 18; O2SAT 100
== END 2017-09-01 21:16 | disposition home or self-care (01) ==
PROVIDERS: Emergency Provider Emergency Medicine
DX: F30.9 Manic episode, unspecified (principal)
CPT/HCPCS: 99282

== ENCOUNTER 2017-09-02 00:45 | Emergency (ER) | payer OTHER, SELFPAY ==
[2017-09-02] VITALS (16 sets, daily range): BP systolic 136–188; BP diastolic 40–105; PULSE 81–140; RESP 14–100; TEMP 36.4–37.2; O2SAT 98–100
[2017-09-02] MEDS: KETAMINE 500 MG/10 ML INJ 350 MG IM (01:20)
[2017-09-02 01:47] LABS: Add Manual Diff / Slide Review NO; Basophils Percent Auto 0.5 % (0-2); Eosinophils Percent Auto 1.3 % (2-4); Hematocrit 41.1 % (36-46); Hemoglobin 14.4 g/dL (12.0-16.0); Lymphocytes Percent Auto 29.4 % (25-40); Mean Corpuscular Hemoglobin 31.7 PG (26-34); Mean Corpuscular Volume 90.7 fL (80-100); Monocytes Percent Auto 10.1 % (3-14); Neutrophils Absolute Auto 4500 /uL (3000-5900); Neutrophils Percent Auto 58.7 % (50-75); Platelet Count 385 X10^3/uL (150-400); Red Blood Cell Count 4.54 X10^6/uL (4.0-5.2); Red Cell Distribution Width 12.9 % (11.6-14.8); White Blood Cell Count 7.6 X10^3/uL (4.5-11.0)
[2017-09-02 01:57] LABS: Acetaminophen < 10 ug/mL (10-30)
[2017-09-02 01:58] LABS: Alanine Aminotransferase 31 IU/L (9-52); Albumin 4.2 g/dL (3.5-5.0); Albumin Globulin Ratio 1.4 (1.0-2.8); Alkaline Phosphatase 83 U/L (38-126); Aspartate Aminotransferase 28 IU/L (14-36); Bilirubin Total 0.5 mg/dL (0.2-1.3); Blood Urea Nitrogen 14 mg/dL (7-17); Calcium 9.2 mg/dL (8.4-10.2); Carbon Dioxide 23 mmol/L (22-32); Chloride 107 mmol/L (98-107); Creatine Kinase 194 U/L (30-135); Estimated Glomerular Filt Rate > 60.0 mL/min (>60); Ethanol (ETOH) < 10 mg/dL; Glucose 137 mg/dL (70-100); HEMOLYSIS < 15 (0-50); Potassium 3.1 mmol/L (3.4-5.1); Sodium 142 mmol/L (137-145); Total Protein 7.2 g/dL (6.3-8.2)
[2017-09-02 01:59] LABS: Urine Amphetamines Negative (Negative); Urine Barbiturates Negative (Negative); Urine Benzodiazepines Negative (Negative); Urine Cocaine Negative (Negative); Urine MDMA Negative (Negative); Urine Methadone Negative (Negative); Urine Methamphetamines Negative (Negative); Urine Morphine/Opi cutoff 2000 Negative (Negative); Urine Oxycodone Negative (Negative); Urine Phencyclidine Negative (Negative); Urine Tetrahydrocannabinol Negative (Negative); Urine Tricyclic Antidepressant Negative (Negative)
[2017-09-02 02:01] LABS: Appearance Urine UA CLEAR; Bilirubin Urine UA NEGATIVE (NEGATIVE); Color Urine UA YELLOW; Glucose Urine UA NEGATIVE (Normal); Ketones Urine UA NEGATIVE (NEGATIVE); Leukocyte Esterase Urine UA NEGATIVE (NEGATIVE); Nitrite Urine UA Negative (Negative); Occult Blood Urine UA TRACE-LYSED (Negative); Protein Urine UA 1+ (Negative); Urobilinogen Urine UA 0.2 E.U./dL (0.2)
[2017-09-02 02:02] LABS: Pregnancy Test Urine Negative (Negative)
[2017-09-02 02:03] LABS: Lithium < 0.2 mmol/L (0.6-1.2); Salicylate < 1.0 mg/dL (<20)
[2017-09-02 02:06] LABS: RBC Urine 0-1/HPF (0-5/HPF); Squamous Epithelial Cell Urine 0-1 /HPF; WBC Urine 0-1/HPF (0-5/HPF)
[2017-09-02 02:07] LABS: Amorphous Sediment Urine 1+; Bacteria Urine Occasional (0-1); Culture Indicated Urine Cult Not Indicated; Hyaline Casts Urine 5-10/LPF
[2017-09-02 02:14] LABS: Free T4, Direct Thyroxine 1.01 ng/dL (0.78-2.19)
--- NOTE | 2017-09-02 04:44 | PC.NURSE ---
pt arrived via [employer] yelling and screaming about satan. [employer] reports violent behavior at home and in their custody. pt was released from handcuffs and attempted to walk out of room 13. [employer] stopped her. pt attempted to push staff and charged toward other staff. Provider in room during handoff from [employer], witnessed behavior and attempted to assess pt. pt continued to agressivley motion toward staff. provider ordered locked seclution at 0050. At 0105 staff and provider entered room to attempt to obtain a blood sample for cdp required toxicology testing. Pt had disrobed and climbed under sleeping matress. pt refused stating I have no blood because I am already . You will be too if you don't follow the lord. You follow satan. Provider gave order for chemical restraints in order to obtain blood and urine so the pt can be helped by cdp. provider, [employer] and staff entered room and administered IM Ketamine while [employer] physically restrained pt for staff and pt saftey. Pt then immediatley moved to room one for procedural sedation monitoring and procedures. pressured speech about god, satan and evil continued until medication took full effect. pt placed on monitor for continuous hemodynamics and cardiac monitoring with ETCO2. Blood and urine obtained and pt recovered in room 1. procedural sedation discontinued and pt was calm and returned to room 13 with open door. Restraint order discontinued. pt slept for 1.5 hours. Upon waking pt began using pressured speech and looping through the same few questions while staff assessed mental and physical needs. pt given water and kleenex at 0430 and vital reassessed. pt denied any discomfort or needs at this time.
--- NOTE | 2017-09-02 05:45 | PC.NURSE ---
pt showing more signs of alli after getting some rest. she is fully awake and will not stop talking loudly about her relationship with trmaira and about how rich she is. pt given four cups of water which she gulps down immediatley. pt given crackers and sheese which she refused. pt then given applesauce. pt ate 2 apple sauces. pt placed in yellow fall risk socks and escorted to room 13 bathroom. pt gate unsteady requiring assistance from staff to ambulate. pt states im emeciated and weak because im anorexic, look at my gross skinny legs. pt assisted back to bed and given several warm blankets. pt continues to talk loudly and is now asking to speak to Janine and Doe Johnson, She runs your hospital. She's my friend and she needs to come see me so we can have lunch. Provider notified of increasing symptoms.
--- NOTE | 2017-09-02 05:56 | ED_ITS ---
HPI - Psych General Chief Complaint: Psychiatric Symptoms Stated Complaint: Behavioral History of Present Illness HPI Narrative: I 51-year-old female with [employer] I presents and police custody with ongoing paranoid delusions/hallucinations, flight of ideas, tangentiallity, and uninterruptible and non-redirectable rapid pressured speech; police were called to a verbal altercation at the patient's parents house, the patient then appears to have spontaneously left the residence and entered the passenger seat of a police car outside, when the safety instruction police officer began speaking with the patient in the police car she bolted into an unlocked nearby residence and was retrieved from a closet where she was found cowering behind clothing and mumbling nonsensical speech. Patient been evaluated earlier in the evening with similar, albeit significantly lesser symptoms, patient was without evidence of gross decompensation at time and was discharged as she wished for no further care. In the intervening time the patient's mentation has worsened. Please note that the patient is able to be taken into custody without traumatic injury. M/S/F/SocHx notable for: please see HPI; remainder reviewed with patient and in chart. ROS: Negative constitutional, eye, cardiovascular, pulmonary, GI, , MSK, skin , neurologic, psychiatric, endocrine unless noted in the HPI. Exam Gen: pleasant, nontoxic-appearing, fidgety, flight of ideas, tangential, rapid pressured speech. Unable to engage with conversation. Expressing rapid flight of ideas with perseveration around congregational themes, most notably the patient being a child of God and that most of the caregivers and law enforcement are agents of [employer], patient also reports ongoing close friendship with the president [facility] and notes that all of the involved caregivers jobs are in jeopardy due to her presidential relationship. During the interview the patient spontaneously disrobed and lay under the mat in the room. HEENT: NC, AT, PEERL, EOMI. Resp: Clear to auscultation bilaterally, normal work of breathing, no accessory muscle usage. Card: Regular rate and rhythm with no murmurs, rubs, or gallops, extremities warm and well perfused. GI: Non-tender to palpation throughout all quadrants, no focal tenderness at McBurney's point, negative Velázquez's sign, non-distended, no rebound or guarding. : No suprapubic tenderness to palpation. MSK: No visible deformities, strength and tone without visually appreciable deficit. Skin: Normal color with no visible lesions. Neuro: AO x 3, no facial asymmetry, vision and hearing WNL. Psych: please see above Labs / Imaging: labs: WBC 7.6, HB 14.4, sodium 142, potassium 3.1, AST 20, ALT 31, free T4 1.01, TSH 15.30, CK 194 UA - negative nitrate, negative leukocyte esterase, occasional bacteria, 0-1 squamous epithelial cells. Acetaminophen less than 10, lithium less than 0.2, salicylates less than one, UDS negative. EKG: SR at 108 BPM, QRS 81 msec, QTc 387 msec, no ST-segment elevations or depressions, T-wave inversions or new LBBB. MDM Previous chart, nursing note, labs, imaging, and vitals reviewed. A: 51-year-old female with [employer] I presents and police custody with ongoing paranoid delusions/hallucinations, flight of ideas, tangentiallity, and uninterruptible and non-redirectable rapid pressured speech; police were called to a verbal altercation at the patient's parents house, the patient then appears to have spontaneously left the residence and entered the passenger seat of a police car outside, when the safety instruction police officer began speaking with the patient in the police car she bolted into an unlocked nearby residence and was retrieved from a closet where she was found cowering behind clothing and mumbling nonsensical speech. DDx & Evaluation: patient with worsening clinical trajectory, now gravely disabled. Given the rapid worsening, new tachycardia, and concern for possible drug ingestion or endocrine abnormalities medical evaluations warranted. Patient unable to provide consent due to lack of capacity. Patient was given IM 350 mg ketamine with good effect. Labs and EKG notable for a TSH elevation with a normal free T4, based upon the patient's overall presentation this is felt to be unlikely to have a significant contributory effect. Patient medically cleared. Mental health evaluation requested and pending at time of patient care transfer to Dr. Dhillon, the oncoming [facility] provider. Impression: [employer] I with grave decompensation 2/2 alli (please reference below for remainder of encounter information) Related Data Home Medications Medication Instructions Recorded Confirmed levothyroxine [Synthroid] 75 mcg PO DAILY 08/23/17 08/23/17 progesterone micronized 200 mcg PO DAILY 08/23/17 08/23/17 Allergies Allergy/AdvReac Type Severity Reaction Status Date / Time aspirin Allergy Verified 08/23/17 03:30 codeine Allergy Verified 08/23/17 03:30 diazepam [From Valium] Allergy Verified 08/23/17 03:30 ibuprofen [From Advil] Allergy Verified 08/23/17 03:30 morphine Allergy Verified 08/23/17 03:30 naproxen [From Aleve] Allergy Verified 08/23/17 03:30 Penicillins Allergy Verified 08/23/17 03:30 [facility] Medical History Endometriosis (Acute) Hypothyroid (Acute) PTSD (post-traumatic stress disorder) (Acute) Social History Smoking Status: Never smoker Exam Initial Vital Signs Initial Vital Signs: Vital Signs Temperature 98.9 F 09/02/17 00:45 Pulse Rate 108 H 09/02/17 00:45 Respiratory Rate 14 09/02/17 00:45 Blood Pressure 180/99 H 09/02/17 00:45 Pulse Oximetry 99 09/02/17 00:45 Course Orders Ordered: ED Orders 09/02/17 01:08 EKG-12 Lead Stat 09/02/17 01:25 Acetaminophen Stat Complete Blood Count AUTO DIFF Stat Comprehensive Metabolic Panel Stat Creatine Kinase Stat Ethanol (ETOH) Stat Free T4 Free Thyroxine Stat Edson Stat Salicylate Stat Thyroid Stimulating Hormone Stat 09/02/17 01:35 Test Urine Stat Rapid Drug Screen, Urine Stat Urinalysis and Microscopic Stat Discontinued Medications Ketamine HCl (Ketalar) 350 mg IM NOW ONE Stop: 09/02/17 01:09 Last Admin: 09/02/17 01:20 Dose: 350 mg Vital Signs - 8 hr 09/02/17 00:45 09/02/17 01:20 09/02/17 01:30 Temperature 98.9 F Pulse Rate 108 H 128 H 140 H Respiratory Rate 14 22 22 Blood Pressure 180/99 H Blood Pressure [Right Arm] 188/88 H 180/99 H Pulse Oximetry 99 100 99 09/02/17 01:35 09/02/17 01:45 09/02/17 02:00 Temperature Pulse Rate 108 H 133 H 112 H Respiratory Rate 14 20 18 Blood Pressure Blood Pressure [Right Arm] 175/105 H 144/97 H Pulse Oximetry 100 100 09/02/17 02:15 09/02/17 02:30 09/02/17 02:40 Temperature Pulse Rate 97 H 84 81 Respiratory Rate 100 H 18 16 Blood Pressure Blood Pressure [Right Arm] 157/87 H 136/66 H 138/80 H Pulse Oximetry 100 100 100 09/02/17 04:30 Temperature 98.2 F Pulse Rate 99 H Respiratory Rate 18 Blood Pressure Blood Pressure [Right Arm] 157/100 H Pulse Oximetry 99 MDM - Psych Lab Data Result diagrams: 09/02/17 01:25 09/02/17 01:25 Lab Results 09/02/17 09/02/17 09/02/17 Range/Units 01:25 01:25 01:25 WBC 7.6 (4.5-11.0) X10^3/uL RBC 4.54 (4.0-5.2) X10^6/uL Hgb 14.4 (12.0-16.0) g/dL Hct 41.1 (36-46) % MCV 90.7 (80-100) fL MCH 31.7 (26-34) PG MCHC 35.0 (30-36) % RDW 12.9 (11.6-14.8) % Plt Count 385 (150-400) X10^3/uL Neut % (Auto) 58.7 (50-75) % Lymph % (Auto) 29.4 (25-40) % [place] % (Auto) 10.1 (3-14) % Eos % (Auto) 1.3 L (2-4) % Baso % (Auto) 0.5 (0-2) % Neut # (Auto) 4500 (5108-6933) /uL Sodium 142 (137-145) mmol/L Potassium 3.1 L (3.4-5.1) mmol/L Chloride 107 (98-107) mmol/L Carbon Dioxide 23 (22-32) mmol/L BUN 14 (7-17) mg/dL Creatinine 0.70 (0.52-1.04) mg/dL Estimated GFR > 60.0 (>60) mL/min BUN/Creatinine Ratio 20.0 (6-22) Glucose 137 H (70-100) mg/dL Calcium 9.2 (8.4-10.2) mg/dL Total Bilirubin 0.5 (0.2-1.3) mg/dL AST 28 (14-36) IU/L ALT 31 (9-52) IU/L Alkaline Phosphatase 83 (38-126) U/L Total Creatine Kinase 194 H (30-135) U/L Total Protein 7.2 (6.3-8.2) g/dL Albumin 4.2 (3.5-5.0) g/dL Globulin 3.0 (1.7-4.1) g/dL Albumin/Globulin Ratio 1.4 (1.0-2.8) TSH 15.30 H D (0.47-4.68) uIU/mL Free T4 1.01 (0.78-2.19) ng/dL Urine Color Urine Appearance Urine pH (4.5-8.0) Ur Specific [place] (1.000-1.035) Urine Protein (Negative) Urine Glucose (UA) (Normal) g/dL Urine Ketones (NEGATIVE) Urine Occult Blood (Negative) Urine Nitrate (Negative) Urine Bilirubin (NEGATIVE) Urine Urobilinogen (0.2) E.U./dL Ur Leukocyte Esterase (NEGATIVE) Urine RBC (0-5/HPF) Urine WBC (0-5/HPF) Ur Squamous Epith Cells Amorphous Sediment Urine Bacteria (None) Hyaline Casts (None) Ur Culture Indicated? Micro UA Comment Urine Test (Negative) Salicylates < 1.0 (<20) mg/dL Urine Opiates Screen (Negative) Ur Oxycodone Screen (Negative) Urine Methadone Screen (Negative) Acetaminophen (10-30) ug/mL Ur Barbiturates Screen (Negative) U Tricyclic Antidepress (Negative) Ur Phencyclidine Scrn (Negative) Ur Amphetamines Screen (Negative) U Methamphetamines Scrn (Negative) Ur MDMA Scrn (Ecstasy) (Negative) U Benzodiazepines Scrn (Negative) Edson (0.6-1.2) mmol/L Urine Cocaine Screen (Negative) U Marijuana (THC) Screen (Negative) Ethyl Alcohol < 10 mg/dL 09/02/17 09/02/17 09/02/17 Range/Units 01:25 01:25 01:35 WBC (4.5-11.0) X10^3/uL RBC (4.0-5.2) X10^6/uL Hgb (12.0-16.0) g/dL Hct (36-46) % MCV (80-100) fL MCH (26-34) PG MCHC (30-36) % RDW (11.6-14.8) % Plt Count (150-400) X10^3/uL Neut % (Auto) (50-75) % Lymph % (Auto) (25-40) % [place] % (Auto) (3-14) % Eos % (Auto) (2-4) % Baso % (Auto) (0-2) % Neut # (Auto) (9225-2706) /uL Sodium (137-145) mmol/L Potassium (3.4-5.1) mmol/L Chloride (98-107) mmol/L Carbon Dioxide (22-32) mmol/L BUN (7-17) mg/dL Creatinine (0.52-1.04) mg/dL Estimated GFR (>60) mL/min BUN/Creatinine Ratio (6-22) Glucose (70-100) mg/dL Calcium (8.4-10.2) mg/dL Total Bilirubin (0.2-1.3) mg/dL AST (14-36) IU/L ALT (9-52) IU/L Alkaline Phosphatase (38-126) U/L Total Creatine Kinase (30-135) U/L Total Protein (6.3-8.2) g/dL Albumin (3.5-5.0) g/dL Globulin (1.7-4.1) g/dL Albumin/Globulin Ratio (1.0-2.8) TSH (0.47-4.68) uIU/mL Free T4 (0.78-2.19) ng/dL Urine Color Urine Appearance Urine pH (4.5-8.0) Ur Specific [place] (1.000-1.035) Urine Protein (Negative) Urine Glucose (UA) (Normal) g/dL Urine Ketones (NEGATIVE) Urine Occult Blood (Negative) Urine Nitrate (Negative) Urine Bilirubin (NEGATIVE) Urine Urobilinogen (0.2) E.U./dL Ur Leukocyte Esterase (NEGATIVE) Urine RBC (0-5/HPF) Urine WBC (0-5/HPF) Ur Squamous Epith Cells Amorphous Sediment Urine Bacteria (None) Hyaline Casts (None) Ur Culture Indicated? Micro UA Comment Urine Test (Negative) Salicylates (<20) mg/dL Urine Opiates Screen Negative (Negative) Ur Oxycodone Screen Negative (Negative) Urine Methadone Screen Negative (Negative) Acetaminophen < 10 L (10-30) ug/mL Ur Barbiturates Screen Negative (Negative) U Tricyclic Antidepress Negative (Negative) Ur Phencyclidine Scrn Negative (Negative) Ur Amphetamines Screen Negative (Negative) U Methamphetamines Scrn Negative (Negative) Ur MDMA Scrn (Ecstasy) Negative (Negative) U Benzodiazepines Scrn Negative (Negative) Edson < 0.2 L (0.6-1.2) mmol/L Urine Cocaine Screen Negative (Negative) U Marijuana (THC) Screen Negative (Negative) Ethyl Alcohol mg/dL 18 09/02/17 Range/Units 01:35 01:35 WBC (4.5-11.0) X10^3/uL RBC (4.0-5.2) X10^6/uL Hgb (12.0-16.0) g/dL Hct (36-46) % MCV (80-100) fL MCH (26-34) PG MCHC (30-36) % RDW (11.6-14.8) % Plt Count (150-400) X10^3/uL Neut % (Auto) (50-75) % Lymph % (Auto) (25-40) % [place] % (Auto) (3-14) % Eos % (Auto) (2-4) % Baso % (Auto) (0-2) % Neut # (Auto) (5514-6484) /uL Sodium (137-145) mmol/L Potassium (3.4-5.1) mmol/L Chloride (98-107) mmol/L Carbon Dioxide (22-32) mmol/L BUN (7-17) mg/dL Creatinine (0.52-1.04) mg/dL Estimated GFR (>60) mL/min BUN/Creatinine Ratio (6-22) Glucose (70-100) mg/dL Calcium (8.4-10.2) mg/dL Total Bilirubin (0.2-1.3) mg/dL AST (14-36) IU/L ALT (9-52) IU/L Alkaline Phosphatase (38-126) U/L Total Creatine Kinase (30-135) U/L Total Protein (6.3-8.2) g/dL Albumin (3.5-5.0) g/dL Globulin (1.7-4.1) g/dL Albumin/Globulin Ratio (1.0-2.8) TSH (0.47-4.68) uIU/mL Free T4 (0.78-2.19) ng/dL Urine Color Yellow Urine Appearance Clear Urine pH 5.0 (4.5-8.0) Ur Specific [place] 1.020 (1.000-1.035) Urine Protein 1+ H (Negative) Urine Glucose (UA) Negative (Normal) g/dL Urine Ketones Negative (NEGATIVE) Urine Occult Blood Trace-lysed (Negative) Urine Nitrate Negative (Negative) Urine Bilirubin Negative (NEGATIVE) Urine Urobilinogen 0.2 (0.2) E.U./dL Ur Leukocyte Esterase Negative (NEGATIVE) Urine RBC 0-1/hpf (0-5/HPF) Urine WBC 0-1/hpf (0-5/HPF) Ur Squamous Epith Cells 0-1 /hpf Amorphous Sediment 1+ Urine Bacteria Occasional (0-1) (None) Hyaline Casts 5-10/lpf (None) Ur Culture Indicated? Cult not indicated Micro UA Comment Not Reportable Urine Test Negative (Negative) Salicylates (<20) mg/dL Urine Opiates Screen (Negative) Ur Oxycodone Screen (Negative) Urine Methadone Screen (Negative) Acetaminophen (10-30) ug/mL Ur Barbiturates Screen (Negative) U Tricyclic Antidepress (Negative) Ur Phencyclidine Scrn (Negative) Ur Amphetamines Screen (Negative) U Methamphetamines Scrn (Negative) Ur MDMA Scrn (Ecstasy) (Negative) U Benzodiazepines Scrn (Negative) Edson (0.6-1.2) mmol/L Urine Cocaine Screen (Negative) U Marijuana (THC) Screen (Negative) Ethyl Alcohol mg/dL Discharge Plan Departure Prescriptions: No Action levothyroxine [Synthroid] 75 mcg Tablet 75 mcg PO DAILY RF: 0 progesterone micronized 200 mg Capsule 200 mcg PO DAILY RF: 0
--- NOTE | 2017-09-02 06:45 | PC.NURSE ---
pt given emesis bags stating I need to throw up. pt [id number] of water. pt given wipes to clean up and new emesis bags. pt now reports no nausea. Pt disassembled the bedding on the gurney and set up a make shift bed in the corner.Gurney removed from room and replaced with matress.
--- NOTE | 2017-09-02 06:55 | PC.NURSE ---
when changing out gurney for mattress pt rushed the door shoving nurse and cyber security. pt was not able to exit room as the door was held nearly shut after cyber security and nurse were able to get free from pt holding them. pt stuck a leg out the door and refused to move. pt was eventually redirected and left the doorway and covered herself up with blankets. pt was then laying on matress stating she is the yahir of the [place]illa of this entire everything and you are all going to pay.
[2017-09-02] MEDS: LEVOTHYROXINE 75 MCG TABLET PO (07:16)
--- NOTE | 2017-09-02 07:24 | PC.NURSE ---
pt given synthroid per pt request and provider order.
--- NOTE | 2017-09-02 07:27 | PC.NURSE ---
recieved a phone call from [facility] and she stated she is waiting for chris to fax [phone] to her office and then she will be heading this way. She requested we have labs, facesheet and provider note ready for her when she gets here.
--- NOTE | 2017-09-02 07:46 | PC.NURSE ---
Patient laying on mattress with blankets, patient remains manic and is shouting obscene-ness.
[2017-09-02] MEDS: HALOPERIDOL 5 MG/ML VIAL IM ×2 (08:30→09:53)
[2017-09-02] MEDS: diphenhydrAMINE 50 MG/ML VIAL IM (08:30)
--- NOTE | 2017-09-02 08:48 | PC.NURSE ---
Nurse and I provided food/water and attempted to check vital signs. Patient refused and threw the portable vitals monitor at us, tried to grab onto both the nurse and I. Had to hold her arms behind her to prevent her from hitting the nurses. We were able to get the patient back into the room and onto the mattress provided.
--- NOTE | 2017-09-02 08:50 | PC.NURSE ---
Patient continued to shout and scream, Nursing staff were able to enter and safely give patient meds.
--- NOTE | 2017-09-02 08:52 | PC.NURSE ---
Patient is now sleeping in room on floor.
--- NOTE | 2017-09-02 09:28 | PC.NURSE ---
Patient banging on door and yelling
--- NOTE | 2017-09-02 09:35 | PC.NURSE ---
Patient took gown off and is naked with a towel wrapped around her walking around room and yelling
--- NOTE | 2017-09-02 09:53 | PC.NURSE ---
Patient was taken to the bathroom, given more water, cleaned up room and provided new blankets while nurses gave more meds.
--- NOTE | 2017-09-02 10:45 | PC.NURSE ---
patient banging on door
--- NOTE | 2017-09-02 10:46 | PC.NURSE ---
patient was given a fruit food tray
== END 2017-09-02 11:30 ==
PROVIDERS: Emergency Medicine; Emergency Provider Emergency Medicine
DX: F31.2 Bipolar disorder, current episode manic severe with psychotic features (principal)
CPT/HCPCS: 36415; 80053; 80178; 80305; 80320; 80329; 81001; 81025; 82550; 84439; 84443; 85025; 93005; 94770; 96372; 99284; 99285; 99291; 99292; G0480; J1200; J1630

== ENCOUNTER → 2019-01-11 11:04 | Outpatient (CLI) | payer OTHER, SELFPAY ==
--- NOTE | 2019-01-11 | DI.MG.S_ITS ---
BILATERAL DIGITAL SCREENING MAMMOGRAM 3D/2D WITH CAD: 01/11/2019 CLINICAL: Baseline exam. Routine screening. No prior exams were available for comparison. The tissue of both breasts is heterogeneously dense. This may lower the sensitivity of mammography. Current study was also evaluated with a Computer Aided Detection (CAD) system. There is an oval focal asymmetry with round calcifications in the left breast superior lateral quadrant posterior depth. There is possible distortion posterior to this mass on the LMLO view. No other significant masses, calcifications, or other findings are seen in either breast. IMPRESSION: INCOMPLETE: NEEDS ADDITIONAL IMAGING EVALUATION The oval focal asymmetry in the superior lateral left breast at posterior depth is indeterminate. Additional views with possible ultrasound are recommended. This exam was interpreted at Station ID: [id number]. NOTE: For mammograms, a report in lay terms will be sent to the patient. Approximately 15% of breast malignancies will not be visualized mammographically. In the management of a palpable breast mass, a negative mammogram must not discourage biopsy of a clinically suspicious lesion. Electronically Signed By: Eric Morales M.D. ecl/:01/11/2019 22:31:19 letter sent: Additional Imaging Needed ACR BI-RADS Category 0: Incomplete [id number]
== END ==
PROVIDERS: PCP Nurse Practitioner Family; Visit Provider Nurse Practitioner Family
DX: Z12.31 Encounter for screening mammogram for malignant neoplasm of breast (principal)
CPT/HCPCS: 77063; 77067

== ENCOUNTER → 2019-02-08 09:18 | Outpatient (CLI) | payer OTHER, SELFPAY ==
--- NOTE | 2019-02-08 | DI.MG.S_ITS ---
UNILATERAL LEFT DIGITAL DIAGNOSTIC MAMMOGRAM 3D/2D WITH ADDITIONAL VIEWS: 02/08/2019 CLINICAL: Additional evaluation requested from prior study. Comparison is made to exam dated: 01/11/2019 [facility]. The tissue of left breast is heterogeneously dense. This may lower the sensitivity of mammography. Previously identified oval focal asymmetry with round calcifications in the left breast superior lateral quadrant posterior depth on comparison screening mammograms of 01/11/19 persists with additional views and localizes to the lateral left breast near the level of the nipple on additional views. THis focal asymmetry demonstrates an oval circumscribed morphology with no convincing architectural distortion identified on additional spot compression and tomosynthesis views. IMPRESSION: INCOMPLETE: NEEDS ADDITIONAL IMAGING EVALUATION Previously identified oval focal asymmetry with round calcifications in the left breast superior lateral quadrant posterior depth on comparison screening mammograms of 01/11/19 persists with additional views and localizes to the lateral left breast near the level of the nipple on additional views. THis focal asymmetry demonstrates an oval circumscribed morphology with no convincing architectural distortion identified on additional spot compression and tomosynthesis views. A targeted ultrasound is recommended for further evaluation, and will be performed immediately following this exam. This exam was interpreted at Station ID: [id number]. NOTE: For mammograms, a report in lay terms will be sent to the patient. Approximately 15% of breast malignancies will not be visualized mammographically. In the management of a palpable breast mass, a negative mammogram must not discourage biopsy of a clinically suspicious lesion. Electronically Signed By: Eric Morales M.D. ecl/:02/08/2019 14:34:17 ACR BI-RADS Category 0: Incomplete [id number]
--- NOTE | 2019-02-08 | DI.US.S_ITS ---
LIMITED ULTRASOUND OF LEFT BREAST: 02/08/2019 CLINICAL: Patient returns today to evaluate an asymmetry in the left breast. Comparison is made to exams dated: 02/08/2019 mammogram and 01/11/2019 mammogram - [facility]. Color flow and real-time ultrasound of the left breast outer aspect were performed. Berry scale images of the real-time examination were reviewed. Targeted ultrasound of the lateral left breast demonstrates a 0.8 x 0.8 x 0.3 cm oval circumscribed anechoic cyst with posterior acoustic enhancement and no vascularity on Doppler ultrasound located in the left breast at 3:00 position 5 cm from the nipple. There are dense mobile echogenic foci consistent with small mobile calcifications within this cyst. No soft tissue component or masses identified by ultrasound. This correlates with findings seen on comparison screening and diagnostic mammography. IMPRESSION: BENIGN 0.8 cm benign-appearing cyst with small internal calcifications in the left breast at 3:00 position 5 cm from the nipple. There is no sonographic evidence of malignancy in the imaged areas of the left breast. Return to annual mammogram screening schedule is recommended. The patient is advised to monitor her breasts and to return sooner for re-evaluation should she feel anything grow or change. This exam was interpreted at Station ID: [id number]. Electronically Signed By: Eric Morales M.D. ecl/:02/08/2019 14:38:22 letter sent: Normal Exam Ultrasound BI-RADS: 2 Benign
== END ==
PROVIDERS: PCP Nurse Practitioner Family; Visit Provider Nurse Practitioner Family
DX: R92.8 Other abnormal and inconclusive findings on diagnostic imaging of breast (principal); R92.1 Mammographic calcification found on diagnostic imaging of breast; N60.02 Solitary cyst of left breast
CPT/HCPCS: 76642; 77065; G0279

== ENCOUNTER → 2024-10-25 16:42 | Outpatient (CLI) | payer OTHER, SELFPAY ==
[2024-10-25 17:04] LABS: Add Manual Diff / Slide Review NO; Hematocrit 42.0 % (36-46); Hemoglobin 14.1 g/dL (12.0-16.0); Lymphocytes Absolute Auto 900 /uL (1100-4500); Mean Corpuscular HGB Conc 33.6 % (30-36); Mean Corpuscular Hemoglobin 29.8 PG (26-34); Mean Corpuscular Volume 88.7 fL (80-100); Platelet Count 379 X10^3/uL (150-400)
[2024-10-25 18:15] LABS: Alanine Aminotransferase 27 IU/L (<35); Albumin 4.3 g/dL (3.5-5.0); Albumin Globulin Ratio 1.3 (1.0-2.8); Alkaline Phosphatase 92 U/L (38-126); Blood Urea Nitrogen 5 mg/dL (7-17); Calcium 9.4 mg/dL (8.4-10.2); Carbon Dioxide 25 mmol/L (22-32); Chloride 103 mmol/L (98-107); Cholesterol 171 mg/dL (140-199); Estimated Glomerular Filt Rate > 60 mL/min (>60); Globulin 3.2 g/dL (1.7-4.1); Glucose 106 mg/dL (70-99); HEMOLYSIS < 15 (0-50); Potassium 4.4 mmol/L (3.4-5.1); Sodium 137 mmol/L (137-145); Total Protein 7.5 g/dL (6.3-8.2); Triglycerides 91 mg/dL (35-150)
[2024-10-25 20:05] LABS: Free T3, Triiodothyronine Free 5.79 pg/mL (2.77-5.27); T4 Total Thyroxine 7.10 ug/dL (5.5-11.0)
[2024-10-25 20:18] LABS: TSH w/ Reflex to FT4 < 0.02 uIU/mL (0.47-4.68)
[2024-10-25 21:43] LABS: HDL Cholesterol 59 mg/dL (40-60)
[2024-10-25 22:11] LABS: Free T4, Direct Thyroxine 1.07 ng/dL (0.78-2.19)
== END ==
LOC: LAB 16:45
PROVIDERS: PCP Family Medicine; Referring Provider Family Medicine; Visit Provider Family Medicine
DX: E03.9 Hypothyroidism, unspecified (principal); Z86.39 Personal history of other endocrine, nutritional and metabolic disease; Z79.899 Other long term (current) drug therapy; R63.5 Abnormal weight gain
CPT/HCPCS: 36415; 80053; 80061; 84436; 84439; 84443; 84481; 85025

== ENCOUNTER → 2024-11-30 10:47 | Outpatient (CLI) | payer OTHER, SELFPAY ==
--- NOTE | 2024-11-30 10:48 | DI.CT.S_ITS ---
PROCEDURE: CT CHEST W CON INDICATIONS: mass to chest TECHNIQUE: After the administration of intravenous contrast, 5 mm thick sections acquired from the pulmonary apices to the posterior costophrenic angles. 1 mm axial lung, 5 mm thick coronal and sagittal reformats and 7 mm axial MIP were acquired. For radiation dose reduction, the following was used: automated exposure control, adjustment of mA and/or kV according to patient size. COMPARISON: [facility], CR, XR CHEST 2V, 11/14/2024, 16:39. FINDINGS: Image quality: Diagnostic. Lower Neck: No enlarged lymph nodes. Thyroid: No thyroid nodules which require sonographic follow up, per consensus guidelines. Axillae: No enlarged lymph nodes. Chest Wall: Unremarkable. Bones: Unremarkable. Lungs and Pleura: No pneumothorax or pleural effusions. No consolidation or suspicious nodules. Heart: Heart size is normal. No pericardial effusion. Thoracic Vessels: The aorta and pulmonary arteries demonstrate normal size. Mediastinum and Sameera: No enlarged lymph nodes. Esophagus: No wall thickening. No hiatal hernia. Upper Abdomen: Visualized upper abdomen solid organs and bowel loops appear normal. IMPRESSION: 1. No pulmonary parenchymal mass, mediastinal mass, or chest wall mass, where subcutaneous mass identified. 2. No acute pulmonary process. Dictated by: Raciel Hogan M.D. on 12/01/2024 at 7:14 Approved by: Raciel Hogan M.D. on 12/01/2024 at 7:15
== END ==
LOC: CT 10:47
PROVIDERS: PCP Family Medicine; Referring Provider Family Medicine; Visit Provider Family Medicine
DX: R22.2 Localized swelling, mass and lump, trunk (principal)
CPT/HCPCS: 71260; Q9967

== ENCOUNTER → 2024-12-16 15:09 | Outpatient (CLI) | payer OTHER, SELFPAY ==
[2024-12-16 15:42] LABS: Add Manual Diff / Slide Review NO; Hematocrit 41.4 % (36-46); Hemoglobin 14.5 g/dL (12.0-16.0); Lymphocytes Absolute Auto 1200 /uL (1100-4500); Mean Corpuscular HGB Conc 35.0 % (30-36); Mean Corpuscular Hemoglobin 30.3 PG (26-34); Mean Corpuscular Volume 86.7 fL (80-100); Platelet Count 346 X10^3/uL (150-400)
[2024-12-16 16:18] LABS: Alanine Aminotransferase 20 IU/L (<35); Albumin 4.5 g/dL (3.5-5.0); Albumin Globulin Ratio 1.7 (1.0-2.8); Alkaline Phosphatase 91 U/L (38-126); Blood Urea Nitrogen 12 mg/dL (7-17); Calcium 9.9 mg/dL (8.4-10.2); Carbon Dioxide 25 mmol/L (22-32); Chloride 105 mmol/L (98-107); Estimated Glomerular Filt Rate > 60 mL/min (>60); Globulin 2.7 g/dL (1.7-4.1); Glucose 90 mg/dL (70-99); HEMOLYSIS < 15 (0-50); Potassium 3.9 mmol/L (3.4-5.1); Sodium 138 mmol/L (137-145); Total Protein 7.2 g/dL (6.3-8.2)
[2024-12-16 16:45] LABS: TSH w/ Reflex to FT4 < 0.02 uIU/mL (0.47-4.68)
[2024-12-16 17:26] LABS: Free T4, Direct Thyroxine 1.10 ng/dL (0.78-2.19)
== END ==
PROVIDERS: PCP Family Medicine; Referring Provider Family Medicine; Visit Provider Family Medicine
DX: E03.9 Hypothyroidism, unspecified (principal); Z79.899 Other long term (current) drug therapy; Z86.39 Personal history of other endocrine, nutritional and metabolic disease; R63.5 Abnormal weight gain
CPT/HCPCS: 36415; 80053; 84439; 84443; 85025

== ENCOUNTER → 2025-01-14 15:57 | Outpatient (CLI) | payer OTHER, SELFPAY ==
[2025-01-14 17:32] LABS: T4 Total Thyroxine 6.28 ug/dL (5.5-11.0)
[2025-01-14 17:46] LABS: TSH w/ Reflex to FT4 17.30 uIU/mL (0.47-4.68)
[2025-01-14 18:15] LABS: Free T4, Direct Thyroxine 1.02 ng/dL (0.78-2.19)
== END ==
LOC: LAB 15:58
PROVIDERS: PCP Family Medicine; Referring Provider Family Medicine; Visit Provider Family Medicine
DX: E03.9 Hypothyroidism, unspecified (principal); Z86.39 Personal history of other endocrine, nutritional and metabolic disease
CPT/HCPCS: 36415; 84436; 84439; 84443; 84480